=== PATIENT | female | born 1985 | race African-American/Black ===

== ENCOUNTER 2018-07-06 10:26 | Emergency (ER) | payer MEDICAID, OTHER ==
[~2018-07-06] VITALS: Ht 170.2 cm; Wt 92.0 kg
[2018-07-06] MEDS ORDERED: IBUPROFEN 400MG TABLET PO ONE (12:45)
[2018-07-06] MEDS ORDERED: BACITRACIN ZINC OINT UDPKT TOP ONE (12:45)
[2018-07-06 12:50] VITALS: BP 124/89
== END 2018-07-06 13:05 | disposition home or self-care (01) ==
LOC: ER 11:03
DX: S70.261A Insect bite (nonvenomous), right hip, initial encounter (principal); W57.XXXA Bitten or stung by nonvenomous insect and other nonvenomous arthropods, initial encounter; Y93.89 Activity, other specified; Y92.89 Other specified places as the place of occurrence of the external cause; Y99.8 Other external cause status; Z98.890 Other specified postprocedural states
CPT/HCPCS: 99283

== ENCOUNTER 2018-08-11 12:28 | Emergency (ER) | payer MEDICAID ==
[~2018-08-11] VITALS: Ht 170.2 cm; Wt 93.0 kg
[2018-08-11] MEDS ORDERED: ACETAMINOPHEN WITH CODEINE 300/30MG TABLET PO ONE (15:00)
[2018-08-11 15:17] VITALS: BP 142/93
== END 2018-08-11 17:22 | disposition home or self-care (01) ==
LOC: ER 12:28
DX: S52.124A Nondisplaced fracture of head of right radius, initial encounter for closed fracture (principal); W01.0XXA Fall on same level from slipping, tripping and stumbling without subsequent striking against object, initial encounter; Y93.89 Activity, other specified; Y92.89 Other specified places as the place of occurrence of the external cause; R03.0 Elevated blood-pressure reading, without diagnosis of hypertension
CPT/HCPCS: 29105; 73070; 99284